=== PATIENT | female | born 1985 | race Caucasian/White ===

== ENCOUNTER 2017-02-14 06:00 | Inpatient (IN) | payer OTHER ==
[~2017-02-14] VITALS: Ht 160 cm; Wt 72.8 kg
--- NOTE | ~2017-02-14 | OR ---
[facility] AGE[facility] 31 Y [address] ROOM: [place] [id number] LOCATION: [facility] ADMIT DATE: 02/14/2017 OR/Procedure Report DISCHARGE DATE: 02/16/2017 FAMILY PHYSICIAN: PHYSICIAN, NO ATTENDING PHYSICIAN: Jenny Jensen SURGEON: Jenny Jensen MD ENVIRONMENTAL HEALTH AIDE: DATE OF PROCEDURE: 02/14/2017 PREOPERATIVE DIAGNOSES: 1. Intrauterine at 39 weeks. 2. Prior section. POSTOPERATIVE DIAGNOSES: 1. Intrauterine at 39 weeks. 2. Prior section. PROCEDURE: Repeat low transverse section. ENVIRONMENTAL HEALTH AIDE SURGEON: Dr. Hodges. Dr. Hodges was necessary for adequate visualization of tissues and delivery of the fetus. ESTIMATED BLOOD LOSS: 500 mL. ANESTHESIA: Spinal. FINDINGS: Male , score 8 and 9. Weight 7 pounds, 0 ounces. Intact placenta, 3-vessel cord. Normal uterus, tubes, and ovaries. DRAINS: None. SPECIMENS: None. COMPLICATIONS: None. INDICATIONS: This patient is a 31-year-old, G3, P2-0-0-2 female, who came in for a scheduled repeat low transverse section. Prior to the procedure, the risks, benefits, and alternatives to the procedure were discussed with the patient. She understood the risks to be, but not to be limited to, bleeding, infection, damage to the bowel, bladder, ureter, and surrounding organs and desired to proceed. DESCRIPTION OF PROCEDURE: The patient was taken to the operating room. Spinal anesthesia was found to be adequate. She was prepped and draped in a dorsal supine position with leftward tilt. A Pfannenstiel skin incision was PATIENT'S NAME: [facility] AGE: 31 Y [address] ROOM: [place] [id number] LOCATION: [facility] ADMIT DATE: 02/14/2017 OR/Procedure Report DISCHARGE DATE: 02/16/2017 FAMILY PHYSICIAN: PHYSICIAN, NO ATTENDING PHYSICIAN: Jenny Jensen. It was carried down through to the fascia. The fascia was incised. The fascial incision was extended. The rectus muscles were . The peritoneum was entered. The bladder blade was inserted. The uterus was incised in a low transverse fashion with the scalpel. The uterine incision was extended with vertical traction. Surgeon's hand was inserted into the uterus. The head delivered. The rest of fetus delivered. The nose and mouth were bulb suctioned. The cord was clamped and cut. The was handed to awaiting team. Cord blood was drawn. The placenta delivered with manual traction. The uterus was exteriorized and cleared of clots and debris. It was repaired with 0 Vicryl in a running-locked fashion. Hemostasis was noted. It was returned to the abdomen. Hemostasis was again noted. The fascia was repaired with 0 Vicryl. The skin was closed with 4-0 Vicryl. COMPLICATIONS: None. CONDITION: Mom stable in room. Infant to nursery. MD HOLLAND ZAPATA/kj /[id number] d: 02/17/17 1309 t: 02/28/17 0903, OPERATIVE SUMMARY
[~2017-02-14 06:00] MED LIST: AMOXICILLIN250 MG PO; APNO TOP; LANSINOH7 GM TOP; PERCOCET 5-3251 EACH PO; PRENATAL 1+1)(P1 TAB PO; SURFAK240 MG PO
[2017-02-14 06:37] LABS: BASOPHIL % 0.1 %; EOSINOPHIL % 0.3 %; HEMATOCRIT 35.8 % (33.0-46.0); HEMOGLOBIN 12.5 g/dL (11.0-15.0); IMMATURE GRANULOCYTE # 0.1 K/uL (0.0-0.3); LYMPHOCYTE # 2.5 K/uL (0.8-4.0); LYMPHOCYTE % 21.4 %; MCH 32.3 pg (27.0-34.0); MCHC 34.9 gm/dL (32.0-36.5); MCV 92.5 fl (83.0-98.0); MONOCYTE # 0.6 K/uL (0.0-1.0); MONOCYTE % 5.4 %; MPV 10.6 fl (9.4-12.4); NEUTROPHIL # (ANC) 8.3 K/uL (1.8-7.8); NEUTROPHIL % 71.8 %; NRBC % 0 /100WBC (0-0.00); PLATELET COUNT 159 K/uL (150-450); RBC 3.87 M/uL (3.50-5.50); RDW-CV 13.7 % (11.9-14.6); WBC 11.6 K/uL (4.0-11.0)
--- NOTE | 2017-02-14 14:38 | NUR ---
Reviewed patient's chart at 0950. No concerns noted in the chart. Patient had good care and has had two prior csections. Patient delivered a boy via csection at 0750 today. Will wait to visit her tomorrow.
[2017-02-15 04:51] LABS: BASOPHIL % 0.1 %; EOSINOPHIL # 0.1 K/uL (0.0-0.5); EOSINOPHIL % 0.9 %; HEMATOCRIT 31.3 % (33.0-46.0); HEMOGLOBIN 10.9 g/dL (11.0-15.0); IMMATURE GRANULOCYTE # 0.1 K/uL (0.0-0.3); IMMATURE GRANULOCYTE % 0.7 %; LYMPHOCYTE # 2.2 K/uL (0.8-4.0); LYMPHOCYTE % 18.3 %; MCH 32.8 pg (27.0-34.0); MCHC 34.8 gm/dL (32.0-36.5); MCV 94.3 fl (83.0-98.0); MONOCYTE # 0.7 K/uL (0.0-1.0); MONOCYTE % 5.8 %; MPV 10.4 fl (9.4-12.4); NEUTROPHIL # (ANC) 8.7 K/uL (1.8-7.8); NEUTROPHIL % 74.2 %; NRBC % 0 /100WBC (0-0.00); PLATELET COUNT 147 K/uL (150-450); RBC 3.32 M/uL (3.50-5.50); RDW-CV 13.9 % (11.9-14.6); WBC 11.8 K/uL (4.0-11.0)
--- NOTE | 2017-02-16 04:38 | NUR ---
vss, fundus firm, even/-1 down, small flow. incision looks good, sutured and steri striped. 1 percocet given at 0039 and motrin given at 0405. pt plans home today.
[2017-02-16] MEDS ORDERED: MOTRIN800 MG PO (11:45)
[2017-02-16] MEDS ORDERED: LANSINOH7 GM TOP (11:45)
[2017-02-16] MEDS ORDERED: PERCOCET 5-3251 EACH PO (11:46)
== END 2017-02-16 12:35 | disposition disaster alternative care site (69) | DRG 766 ==
LOC: GOBS 06:00
PROVIDERS: ADMIT Obstetrics & Gynecology
PROC: 10D00Z1 Extraction of Products of Conception, Low, Open Approach (ICD-10-PCS; principal; 2017-02-14)
DX: O34.211 Maternal care for low transverse scar from previous cesarean delivery (principal); Z37.0 Single live birth; Z3A.39 39 weeks gestation of pregnancy
CPT/HCPCS: J0690; J1885; J2270; J2590; J3010; J7120